=== PATIENT | female | born 1965 | race Caucasian/White ===

== ENCOUNTER 2017-08-07 12:42 | Day surgery (SDC) | payer BC ==
[2017-08-07] MEDS ORDERED: MIDAZOLAM HCL 2MG/2ML VIAL IV ONE (16:15)
[2017-08-07] MEDS ORDERED: PROPOFOL 10 MG/ML VIAL IV ONE (16:15)
[2017-08-07] MEDS ORDERED: LIDOCAINE 2% MDV (20MG/ML) 20ML VIAL IV ONE (16:15)
--- NOTE | 2017-08-13 09:50 | Operative Note ---
DATE OF SURGERY: 08/07/2017 OPERATION: COLONOSCOPY with cold forceps polypectomy x3. PREOPERATIVE DIAGNOSIS: Personal history of large adenomatous polyp. POSTOPERATIVE DIAGNOSES: 1. Sigmoid diverticula. 2. Rectal polyps x2. 3. Ascending colon polyp x1. PREPARATION QUALITY: Good. ESTIMATED BLOOD LOSS: Minimal. SPECIMENS: Rectal polyps and ascending colon polyp. PROCEDURE: After informed consent was obtained from the patient, she was placed in the left lateral decubitus position in the endoscopy suite, sedated and monitored by the department of anesthesia. Digital rectal exam was unremarkable. A well-lubricated [id number] colonoscope was inserted into the rectum and advanced to the cecum. Preparation quality was good. The cecum, ascending colon, and transverse colon were free of inflammatory changes or mass lesions. There was a diminutive ascending colon polyp removed with a cold forceps. The descending colon was unrevealing. The sigmoid colon revealed [id number] diverticulosis. The rectum was unremarkable in forward views but J-turn views revealed 2 diminutive polyps each removed with a cold forceps. Minimal bleeding was noted. The endoscope was straightened, the rectal ampulla deflated, and the endoscope was removed. RECOMMENDATIONS: I would suggest that the patient follow a high-fiber diet and resume her medications. She will require repeat exam in 3 to 5 years pending tissue histology. As always, thank you for allowing me to participate in the healthcare of your patients. CC: JOHN LUQUE MD, FACP [facility]
== END 2017-08-07 14:00 | disposition home or self-care (01) ==
LOC: HOP 12:42
PROVIDERS: ATTEND Internal Medicine Gastroenterology
DX: Z86.010 Personal history of colon polyps (principal); D12.8 Benign neoplasm of rectum; D12.2 Benign neoplasm of ascending colon; K57.30 Diverticulosis of large intestine without perforation or abscess without bleeding